=== PATIENT | male | born 1995 | race Caucasian/White ===

== ENCOUNTER 2020-11-10 22:08 | Emergency (ER) | payer MEDICAID, SELFPAY ==
[~2020-11-10] VITALS: Ht 185.4 cm; Wt 123.4 kg
[2020-11-10 22:13] VITALS: Ht 185.4 cm; Wt 123.4 kg
[2020-11-10 23:02] VITALS: BP 169/80
== END 2020-11-10 23:02 | disposition home or self-care (01) ==
LOC: ED 22:08
DX: R51.9 Headache, unspecified (principal); R50.9 Fever, unspecified; M79.10 Myalgia, unspecified site; J45.909 Unspecified asthma, uncomplicated; Z20.828 Contact with and (suspected) exposure to other viral communicable diseases
CPT/HCPCS: U0003